=== PATIENT | female | born 1980 | race Two or more races ===

== ENCOUNTER 2024-06-28 11:21 | Emergency (ER) | payer OTHER, SELFPAY ==
--- NOTE | 2024-06-28 11:19 | ECG_ITS ---
APPROVED REPORT Exam: Resting ECG HR:101 bpm ECG Measurements Heart Rate 101 AXES WI 144 P 78 QRSd 80 QRS 92 QT 310 T 56 QTc 368 Conclusion SINUS TACHYCARDIA POSSIBLE LEFT ATRIAL ENLARGEMENT [-0.1mV P-WAVE IN V1/V2] BORDERLINE RIGHT AXIS DEVIATION [QRS AXIS > 90] ABNORMAL RHYTHM ECG Electronically signed by : QUINN PATTERSON, 07/01/2024 07:46:13
[2024-06-28 11:35] VITALS: BP 147/94; PULSE 101; RESP 19; TEMP 36.9; O2SAT 98; BMI 20.5
[2024-06-28 11:37] VITALS: BP 124/63; PULSE 80; O2SAT 100
--- NOTE | 2024-06-28 11:50 | XR_ITS ---
FINAL REPORT CLINICAL HISTORY: Chest pain, began at 0400 COMPARISON: None FINDINGS: CHEST 2 VIEWS No acute pulmonary density is evident. There is no evidence of effusion or other pleural disease. The mediastinum has a normal appearance. The cardiac silhouette is unremarkable. IMPRESSION: Unremarkable chest exam. Reviewed, Interpreted and Dictated by Jess Jones MD Transcribed by Ginette Black Authenticated and [facility]
[2024-06-28 11:53] VITALS: BP 127/74; PULSE 88; O2SAT 100
[2024-06-28 11:57] LABS: Basophils % 0.5 % (0.1-2.0); Eosinophils % 0.5 % (0.1-12.0); Hematocrit 40.3 % (37.0-47.0); Hemoglobin 13.2 g/dL (12.2-16.2); Immature Granulocytes # 0.02 10^3uL; Immature Granulocytes % 0.3 %; Lymphocytes # 2.1 K/mm3 (0.7-4.5); Lymphocytes % 33.1 % (10-50); Mean Corpuscular HGB Conc 32.8 g/dL (31.8-35.4); Mean Corpuscular Hemoglobin 27.8 pg (27.0-31.2); Mean Platelet Volume 9.5 fl (7.4-10.4); Monocytes # 0.3 K/mm3 (0.1-1.0); Monocytes % 5.3 % (1.7-9.3); Neutrophils # 3.7 K/mm3 (1.8-7.8); Neutrophils % 60.3 % (37.0-80.0); Nucleated Red Blood Cells # 0 10^3/uL; Nucleated Red Blood Cells % 0 %; Platelet Count 475 K/mm3 (142-424); Red Blood Count 4.74 M/mm3 (4.20-5.40); Red Cell Distribution Width 12.8 % (11.5-17.5); White Blood Count 6.2 K/mm3 (4.8-10.8)
[2024-06-28 12:05] LABS: Chloride 104 mmol/L (98-107); Potassium 3.8 mmoL/L (3.5-5.1); Sodium 138 mmol/L (136-145)
[2024-06-28 12:06] VITALS: BP 117/76; PULSE 95; O2SAT 100
[2024-06-28 12:07] LABS: Blood Urea Nitrogen 8 mg/dl (7-17); Creatinine Clearance Estimated 114 mL/min (50-200); Estimated Glomerular Filt Rate 135 ml/min (>60); GFR (African American) 164 ML/MIN (>60)
--- NOTE | 2024-06-28 12:07 | ED_ITS ---
Discharge Plan Disposition Patient Disposition: Home, Self-Care Condition: Good Referrals Follow up/Referrals: Provider,Referral, MD [Primary Care Provider] - See instructions Activity Restrictions/Add. Instructions Additional Instructions/Restrictions: I recommend Benadryl 50 mg every 4 hours along with Pepcid every 4 hours for your onion garlic and gluten intolerances. If you have shortness of breath difficulty breathing return to the emergency department. I recommend following up with your PCP/molecular biology scientist for retesting as soon as possible. If you have any new persistent or worsening signs or symptoms return to the emergency department as needed. Clinical Impressions Clinical Impression: Paresthesia Print Language Print Language: Estonian Discharge ED Provider: Rolan Pollard General Adult HPI <ANA Andino - Last Filed: 06/28/24 19:22> General Chief complaint: Chest Pain Stated complaint: CP and Allergic Reaction Time Seen by Provider: 06/28/24 12:06 Mode of Arrival: Ambulatory Source of Information: Patient Description of Symptoms (Recalled from ER Triage Doc. by RN): pt presents to ED with c/o allergic reaction last night around 10 pm. 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 pt reports that she ate some queso last night and it had some galric in it. pt reports she was able to take 2 allergy pills and tylenol with some relief. pt reports this am around 0400 she began to experience chest tightness. History of Present Illness HPI narrative: Patient presents for evaluation of thumb numbness finger and toe numbness. Patient states that she has an allergy to onions garlic and gluten in inadvertently ate some of that last night. Patient states that initially she just had some GI upset however today she is started having more abdominal discomfort primarily in upper abdomen and started having paresthesias of the tongue fingers and toes. She denies any chest pain shortness of breath fever chills hemoptysis hematochezia melena nausea vomiting diarrhea inability to tolerate secretions no difficulty swallowing no rashes but does report some itching. Related Data Allergies Allergy/AdvReac Type Severity Reaction Status Date / Time garlic Allergy Other Verified 06/28/24 12:08 gluten Allergy Other Verified 06/28/24 12:08 onion Allergy Other Verified 06/28/24 12:08 PFSH <ANA Andino - Last Filed: 06/28/24 19:22> [facility] Disclaimer: The information contained in this section may have been updated after the patient was seen, as this information can be updated by other users. Social History (Updated 06/28/24 @ 19:22 by ANA Andino) Smoking Status: Never smoker alcohol intake: never current occupational status: employed Travel in the last 8 weeks?: None Have you lived/traveled outside [place] in past 30 days?: No Contact w/someone who lives/traveled outside US past 30 days?: No Exposure to someone with infectious disease in past 14 days?: No Do you have a fever (greater than 100.4 F or 38 C)?: No Have you tested positive for COVID-19?: No Exposed to someone with COVID-19 in past 14 days?: No Do you have a sore throat?: No Do you have a cough?: No Do you have any weakness?: No Do you have any diarrhea?: No Are you experiencing any unusual bleeding?: No Do you have any muscle aches/pain?: No Do you have any abdominal pain?: No Are you experiencing loss of taste or smell?: No <ANA Andino - Last Filed: 06/28/24 19:22> ROS Obtained: Yes Systems reviewed as appropriate & no additional complaints except as documented Physical Exam <ANA Andino - Last Filed: 06/28/24 19:22> General General appearance: alert and in no apparent distress Respiratory Respiratory exam: Present normal lung sounds bilaterally Cardiovascular Cardiovascular exam: Present regular rate Neurological Exam Neurological exam: Present alert and oriented X3 Medical Decision Making <ANA Andino - Last Filed: 06/28/24 19:22> Medical Records Medical records reviewed: Yes I reviewed the patient's medical records. Screening: Per USPSTF and CDC recommendations, given the prevalence of disease in our region, it is our hospital?s policy to screen for HIV and viral Hepatitis for all patients aged 18 and over and those with ongoing risk factors. Atilio Inquiry Pt receiving controlled substance: No Vital Signs: 06/28/24 11:35 06/28/24 11:37 06/28/24 11:53 Temperature 98.4 F Temperature Source Oral Pulse Rate 80 88 Pulse Rate [Left Radial] 101 H Respiratory Rate 19 Blood Pressure 124/63 127/74 Blood Pressure [Right Arm] 147/94 H Blood Pressure Mean [Right Arm] 111 02 Sat by Pulse Oximetry 98 100 100 Oxygen Delivery Method Room Air 06/28/24 12:06 06/28/24 13:44 06/28/24 15:18 Temperature 98 F Temperature Source Pulse Rate 95 H 84 100 H Pulse Rate [Left Radial] Respiratory Rate 16 Blood Pressure 117/76 104/57 L 109/74 L Blood Pressure [Right Arm] Blood Pressure Mean [Right Arm] 02 Sat by Pulse Oximetry 100 99 Oxygen Delivery Method Lab Data Lab results reviewed: Yes I reviewed the patient's lab results. Lab Results 06/28/24 11:26: WBC 6.2, RBC 4.74, Hgb 13.2, Hct 40.3, MCV 85.0, MCH 27.8, MCHC 32.8, RDW 12.8, Plt Count 475 H, MPV 9.5, Neut % (Auto) 60.3, Lymph % (Auto) 33.1, [place] % (Auto) 5.3, Eos % (Auto) 0.5, Baso % (Auto) 0.5, Neut # (Auto) 3.7, Lymph # (Auto) 2.1, [place] # (Auto) 0.3, Eos # (Auto) 0.0, Baso # (Auto) 0.0, ESR 17, Sodium 138, Potassium 3.8, Chloride 104, Carbon Dioxide 25, Anion Gap 12.8, BUN 8, Creatinine 0.50 L, Estimated Creat Clear 114, Estimated GFR 135, Est GFR ( Amer) 164, Glucose 99, Calcium 9.3, Total Bilirubin 0.6, AST 34, ALT 24, Alkaline Phosphatase 96, Troponin I < 0.01, C-Reactive Protein 0.8, Total Protein 8.9 H, Albumin 5.0, Globulin 3.9 H, Albumin/Globulin Ratio 1.3, Serum HCG, Qual Negative, HCV Ab SHAHAB w/Rflx PCR Qn Negative, HIV Ag/Ab Combo Qual Negative 06/28/24 13:38: VBG pH 7.46 H, VBG pCO2 30.7 L, VBG pO2 135.8 H, VBG HCO3 21.5 L , VBG Total CO2 22.5 L, VBG O2 Saturation 99.2 H, VBG Base Excess -2.2, VBG Lactic Acid 1.6 06/28/24 14:46: Troponin I 0.01 06/28/24 11:26 06/28/24 11:26 Orders (Tests/Meds): ED MEDICATIONS Discontinued Medications Generic Name Dose Route Start Last Admin Trade Name Freq PRN Reason Stop Dose Admin Diazepam 2 mg 06/28/24 13:56 06/28/24 14:11 Diazepam 10mg/2ml Syringe IV 06/28/24 13:57 2 mg ONCE ONE Administration Diphenhydramine HCl 50 mg 06/28/24 12:15 06/28/24 12:39 Diphenhydramine 50mg/Ml Vial IV 06/28/24 12:16 50 mg ONCE ONE Administration Famotidine 20 mg 06/28/24 12:17 06/28/24 12:39 Famotidine 20mg/2ml Vial IV 06/28/24 12:18 20 mg ONCE ONE Administration Methylprednisolone Sodium Succinate 80 mg 06/28/24 12:15 06/28/24 12:39 Methylprednisolone Sod Succ 125mg Vial IM 06/28/24 12:16 80 mg ONCE ONE Administration Sodium Chloride 8 ml 06/28/24 12:17 Sodium Chloride 0.9% 10ml Vial IV 07/28/24 12:16 NEEDED PRN dilute pepcid ORDERS Category Date Time Status XR chest 2V Stat Exams 06/28/24 11:50 Completed CRP [C-Reactive Protein] Stat Lab 06/28/24 11:26 Completed Complete Blood Count Auto Diff Stat Lab 06/28/24 11:26 Completed Comprehensive Metabolic Panel Stat Lab 06/28/24 11:26 Completed ESR [Erythrocyte Sedimentation Rate] Stat Lab 06/28/24 11:26 Completed HIV Combo Stat Lab 06/28/24 11:26 Completed Hepatitis C Ab Qual. W/ RFX Stat Lab 06/28/24 11:26 Completed Serum Beta HCG [HCG Qualitative, Serum] Stat Lab 06/28/24 11:26 Completed Troponin I Q3H Lab 06/28/24 14:46 Completed Troponin I Stat Lab 06/28/24 11:26 Completed VBG [Venous Blood Gas] Stat RT 06/28/24 13:38 Completed Medical Decision Narrative: In summary patient is a 44-year-old female who presents to the emergency department for evaluation of paresthesia abdominal pain. Patient is hemodynamically stable upon arrival, afebrile. Physical exam is remarkable for a well-nourished well-developed 44-year-old female who otherwise in no acute distress. [place] Coma Score 15. Patient's awake alert and oriented person place circumstance. Oropharynx is patent with no mucosal edema, [place] Coma Score 15. Breath sounds clear equal bilateral to the bases without adventitious sounds. Patient has no rashes. Abdomen soft nontender no rebound or guarding no rigidity. Bowel sounds normal active. Patient moves all 4 extremities and is neurovascular intact distally. Patient has no focal neurologic deficits.. Differential diagnosis includes allergic reaction versus hyperventilation versus anxiety versus gastroenteritis etc. Initial workup will be conducted with hematologic labs plain, chest x-ray twelve-lead EKG.. Initial interventions include prednisone Pepcid Benadryl. Initial workup reviewed by me and her hematologic labs are nonactionable and my informed trepidation of her plan for chest x-ray shows no acute processes. Twelve-lead EKG did not show evidence of ACS.. Upon repeat evaluation patient still reports paresthesias thus a VBG was ordered. VBG shows alkalosis with a pH of 7.46 pCO2 of 30.7 PO2 of 135.8 and patient is not on home supplemental O2 bicarb 21.5 base excess -2.2 VBG lactic acid 1.6 likely reflective of hyperventilation. Given this patient was given a small dose of Valium 2 mg IV push. After about 30 minutes patient was reassessed and patient reported that her symptoms were abating. Given this I had a shared decision-making discussion with the patient regarding her presentation WHITMAN and findings and I recommended close follow-up with her PCP for any persistent new or worsening signs or symptoms and strict return precautions should she have persistent new or worsening signs or symptoms. Patient verbalized understanding and agreement <Rolan Pollard MD - Last Filed: 06/28/24 20:32> Vital Signs: 06/28/24 11:35 06/28/24 11:37 06/28/24 11:53 Temperature 98.4 F Temperature Source Oral Pulse Rate 80 88 Pulse Rate [Left Radial] 101 H Respiratory Rate 19 Blood Pressure 124/63 127/74 Blood Pressure [Right Arm] 147/94 H Blood Pressure Mean [Right Arm] 111 02 Sat by Pulse Oximetry 98 100 100 Oxygen Delivery Method Room Air 06/28/24 12:06 06/28/24 13:44 06/28/24 15:18 Temperature 98 F Temperature Source Pulse Rate 95 H 84 100 H Pulse Rate [Left Radial] Respiratory Rate 16 Blood Pressure 117/76 104/57 L 109/74 L Blood Pressure [Right Arm] Blood Pressure Mean [Right Arm] 02 Sat by Pulse Oximetry 100 99 Oxygen Delivery Method Lab Data Lab Results 06/28/24 11:26: WBC 6.2, RBC 4.74, Hgb 13.2, Hct 40.3, MCV 85.0, MCH 27.8, MCHC 32.8, RDW 12.8, Plt Count 475 H, MPV 9.5, Neut % (Auto) 60.3, Lymph % (Auto) 33.1, [place] % (Auto) 5.3, Eos % (Auto) 0.5, Baso % (Auto) 0.5, Neut # (Auto) 3.7, Lymph # (Auto) 2.1, [place] # (Auto) 0.3, Eos # (Auto) 0.0, Baso # (Auto) 0.0, ESR 17, Sodium 138, Potassium 3.8, Chloride 104, Carbon Dioxide 25, Anion Gap 12.8, BUN 8, Creatinine 0.50 L, Estimated Creat Clear 114, Estimated GFR 135, Est GFR ( Amer) 164, Glucose 99, Calcium 9.3, Total Bilirubin 0.6, AST 34, ALT 24, Alkaline Phosphatase 96, Troponin I < 0.01, C-Reactive Protein 0.8, Total Protein 8.9 H, Albumin 5.0, Globulin 3.9 H, Albumin/Globulin Ratio 1.3, Serum HCG, Qual Negative, HCV Ab SHAHAB w/Rflx PCR Qn Negative, HIV Ag/Ab Combo Qual Negative 06/28/24 13:38: VBG pH 7.46 H, VBG pCO2 30.7 L, VBG pO2 135.8 H, VBG HCO3 21.5 L , VBG Total CO2 22.5 L, VBG O2 Saturation 99.2 H, VBG Base Excess -2.2, VBG Lactic Acid 1.6 06/28/24 14:46: Troponin I 0.01 Orders (Tests/Meds): ED MEDICATIONS Discontinued Medications Generic Name Dose Route Start Last Admin Trade Name Freq PRN Reason Stop Dose Admin Diazepam 2 mg 06/28/24 13:56 06/28/24 14:11 Diazepam 10mg/2ml Syringe IV 06/28/24 13:57 2 mg ONCE ONE Administration Diphenhydramine HCl 50 mg 06/28/24 12:15 06/28/24 12:39 Diphenhydramine 50mg/Ml Vial IV 06/28/24 12:16 50 mg ONCE ONE Administration Famotidine 20 mg 06/28/24 12:17 06/28/24 12:39 Famotidine 20mg/2ml Vial IV 06/28/24 12:18 20 mg ONCE ONE Administration Methylprednisolone Sodium Succinate 80 mg 06/28/24 12:15 06/28/24 12:39 Methylprednisolone Sod Succ 125mg Vial IM 06/28/24 12:16 80 mg ONCE ONE Administration Sodium Chloride 8 ml 06/28/24 12:17 Sodium Chloride 0.9% 10ml Vial IV 07/28/24 12:16 NEEDED PRN dilute pepcid ORDERS Category Date Time Status XR chest 2V Stat Exams 06/28/24 11:50 Completed CRP [C-Reactive Protein] Stat Lab 06/28/24 11:26 Completed Complete Blood Count Auto Diff Stat Lab 06/28/24 11:26 Completed Comprehensive Metabolic Panel Stat Lab 06/28/24 11:26 Completed ESR [Erythrocyte Sedimentation Rate] Stat Lab 06/28/24 11:26 Completed HIV Combo Stat Lab 06/28/24 11:26 Completed Hepatitis C Ab Qual. W/ RFX Stat Lab 06/28/24 11:26 Completed Serum Beta HCG [HCG Qualitative, Serum] Stat Lab 06/28/24 11:26 Completed Troponin I Q3H Lab 06/28/24 14:46 Completed Troponin I Stat Lab 06/28/24 11:26 Completed VBG [Venous Blood Gas] Stat RT 06/28/24 13:38 Completed Medical Decision Narrative: In summary patient is a 44-year-old female who presents to the emergency department for evaluation of paresthesia abdominal pain. Patient is hemodynamically stable upon arrival, afebrile. Physical exam is remarkable for a well-nourished well-developed 44-year-old female who otherwise in no acute distress. [place] Coma Score 15. Patient's awake alert and oriented person place circumstance. Oropharynx is patent with no mucosal edema, [place] Coma Score 15. Breath sounds clear equal bilateral to the bases without adventitious sounds. Patient has no rashes. Abdomen soft nontender no rebound or guarding no rigidity. Bowel sounds normal active. Patient moves all 4 extremities and is neurovascular intact distally. Patient has no focal neurologic deficits.. Differential diagnosis includes allergic reaction versus hyperventilation versus anxiety versus gastroenteritis etc. Initial workup will be conducted with hematologic labs plain, chest x-ray twelve-lead EKG.. Initial interventions include prednisone Pepcid Benadryl. Initial workup reviewed by me and her hematologic labs are nonactionable and my informed trepidation of her plan for chest x-ray shows no acute processes. Twelve-lead EKG did not show evidence of ACS.. Upon repeat evaluation patient still reports paresthesias thus a VBG was ordered. VBG shows alkalosis with a pH of 7.46 pCO2 of 30.7 PO2 of 135.8 and patient is not on home supplemental O2 bicarb 21.5 base excess -2.2 VBG lactic acid 1.6 likely reflective of hyperventilation. Given this patient was given a small dose of Valium 2 mg IV push. After about 30 minutes patient was reassessed and patient reported that her symptoms were abating. Given this I had a shared decision-making discussion with the patient regarding her presentation WHITMAN and findings and I recommended close follow-up with her PCP for any persistent new or worsening signs or symptoms and strict return precautions should she have persistent new or worsening signs or symptoms. Patient verbalized understanding and agreement I was consulted by the JUAN, and we discussed the complexity of the problems being addressed. I approve the treatment and management plan for this patient's care in the emergency department, thus performing a substantive portion of the medical decision making. Rolan Pollard MD Critical Care <ANA Andino - Last Filed: 06/28/24 19:22> Critical Care Time Critical Care Time: Yes Attestation: On 06/28/24, the high probability of a clinically significant, sudden or life threatening deterioration of the following system(s) required my full and direct attention, intervention and personal management. The time I documented below is in addition to time spent performing reported procedures but includes the following listed in this critical care notation. Total Time Total Critical Care Time: 30
[2024-06-28 12:08] LABS: Alanine Aminotransferase 24 U/L (12-78); Albumin/Globulin Ratio 1.3 (1.1-1.8); Alkaline Phosphatase 96 U/L (38-126); Anion Gap 12.8 mEq/L (5-15); Aspartate Amino Transferase 34 U/L (14-36); Bilirubin,Total 0.6 mg/dl (0.2-1.3); Calcium 9.3 mg/dl (8.4-10.2); Carbon Dioxide 25 mmol/L (22.0-30.0); Globulin 3.9 g/dL (1.3-3.2); Glucose 99 mg/dl (74-100); Total Protein,Serum 8.9 g/dl (6.3-8.2)
[2024-06-28 12:09] LABS: HCG Qualitative, Serum Negative (Negative)
[2024-06-28 12:22] LABS: Troponin I < 0.01 ng/ml (0.00-0.034)
[2024-06-28] MEDS: METHYLPREDNISOLONE SOD SUCC 125MG VIAL 80 MG IM (12:39)
[2024-06-28] MEDS: FAMOTIDINE 20MG/2ML VIAL 20 MG IV (12:39)
[2024-06-28] MEDS: diphenhydrAMINE 50MG/ML VIAL 50 MG IV (12:39)
[2024-06-28 12:58] LABS: Hepatitis C Ab Qual. W/ RFX NEGATIVE (Negative)
[2024-06-28 13:30] LABS: C-Reactive Protein 0.8 mg/L (0-4)
[2024-06-28 13:35] LABS: Erythrocyte Sedimentation Rate 17 mm/hr (0-20)
[2024-06-28 13:44] VITALS: BP 104/57; PULSE 84; O2SAT 99
[2024-06-28 13:48] LABS: Lactate Venous 1.6 mmol/L (0.4-2.0); VBG Base Excess -2.2 mmol/L (-2.4-2.3); VBG HCO3 21.5 mmol/L (23-30); VBG Oxygen Saturation 99.2 % (50-70); VBG PCO2 30.7 mmol/L (35-51); VBG PH 7.46 mmol/L (7.31-7.41); VBG PO2 135.8 mmol/L (28-40); VBG Total CO2 22.5 mmol/L (23-27)
[2024-06-28] MEDS: diazePAM 10MG/2ML SYRINGE 2 MG IV (14:11)
[2024-06-28 14:13] LABS: HIV Combo NEGATIVE (Negative)
--- NOTE | 2024-06-28 14:48 | PC.NURSE ---
2nd troponin was sent to lab. Called and told Ronald in lab.
[2024-06-28 15:18] VITALS: BP 109/74; PULSE 100; RESP 16; TEMP 36.6; O2SAT 99
[2024-06-28 16:38] LABS: Troponin I 0.01 ng/ml (0.00-0.034)
== END 2024-06-28 15:19 | disposition home or self-care (01) ==
PROVIDERS: Physician Assistant; Emergency Provider Student in an Organized Health Care Education/Training Program
DX: R20.2 Paresthesia of skin (principal); R07.9 Chest pain, unspecified
CPT/HCPCS: 71046; 80053; 82803; 84484; 84703; 85025; 85651; 86140; 86803; 87389; 93005; 96372; 96374; 96375; 99291; J1200; J2919; J3360